=== PATIENT | male | born 1965 | race Caucasian/White ===

== ENCOUNTER 2016-10-19 10:23 | Emergency (ER) | payer OTHER ==
[~2016-10-19] VITALS: Ht 182.9 cm; Wt 132.0 kg
[2016-10-19 10:25] VITALS: BP 138/95; PULSE 52; RESP 17; TEMP 97.8; O2SAT 98
[2016-10-19] MEDS ORDERED: CORTI10A LEFT EAR (10:39)
[2016-10-19] MEDS ORDERED: WARF-23 PO (10:39)
[2016-10-19] MEDS ORDERED: ATOR10TA15 PO (10:39)
[2016-10-19] MEDS ORDERED: ATEN25TA PO (10:39)
[2016-10-19] MEDS ORDERED: CIPRHC10A LEFT EAR (10:43)
--- NOTE | 2016-10-19 10:44 | PD ---
HPI . Left ear pain Chief Complaint: ENT Complaint Time Seen by Provider: 10:33 Travel History International Travel<30 days: No Contact w/Intl Traveler<30days: No Traveled to known affect area: No History of Present Illness HPI Patient presents with left ear pain. His been present for about a week. He has been on Neosporin eardrops for about 3 days with no relief. PFSH Past Medical History ?: Not Social History Tobacco Use: No Allergies-Medications (Allergen,Severity, Reaction): Coded Allergies: No Known Allergies (Unverified , 10/19/16) Review of Systems Except as stated in HPI: all other systems reviewed are Neg General / Constitutional: No: Fever, Chills HENT: Positive: Earache Physical Exam Narrative GENERAL: Awake and alert and in no acute distress. SKIN: Warm and dry. HEENT: Left EAC is swollen. The TM is shiny with good light reflex. CARDIOVASCULAR: Regular rate and rhythm. RESPIRATORY: No accessory muscle use. MUSCULOSKELETAL: No obvious deformities. No edema. NEUROLOGICAL: Awake and alert. No obvious cranial nerve deficits. Motor grossly within normal limits. Normal speech. PSYCHIATRIC: Appropriate mood and affect; insight and judgment normal. Data Data Last Documented VS Vital Signs Date Time Temp Pulse Resp B/P Pulse Ox O2 Delivery O2 Flow Rate FiO2 10/19/16 10:25 97.8 52 17 138/95 98 MDM Medical Decision Making Medical Screen Exam Complete: Yes Emergency Medical Condition: Yes Differential Diagnosis Differential diagnosis of ear pain includes eustachian tube dysfunction, otitis externa, otitis media, TMJ syndrome Narrative Course Patient presents with left ear pain. He has otitis externa on exam. Diagnosis Primary Impression: Left otitis externa Qualified Code: H60.502 - Acute otitis externa of left ear, unspecified type Patient Instructions: General Instructions, Otitis Externa (DC) Med/Other Pt SpecificInfo: Prescription(s) given Scripts Ciprofloxacin-Hydrocortisone Otic Drops (Cipro Hc Otic Drops)0.2-1% Susp3 Drop LEFT EAR BID 10 Days Ref 0 Prov:Aranza Brock MD 10/19/16 Disposition: 01 DISCHARGE HOME Condition: Stable Aranza Brock MD Oct 19, 2016 10:44
== END 2016-10-19 10:55 | disposition home or self-care (01) ==
LOC: PHEFT 10:23
DX: H60.92 Unspecified otitis externa, left ear (principal)
CPT/HCPCS: 99282